=== PATIENT | male | born 1990 | race Caucasian/White ===

== ENCOUNTER 2024-01-02 14:32 | Emergency (ER) | payer MEDICARE, SELFPAY ==
[2024-01-02 14:46] VITALS: BP 130/86; PULSE 86; RESP 16; TEMP 37.2; O2SAT 100
--- NOTE | 2024-01-02 15:34 | ED.GENADULT ---
HPI - General Adult General Chief complaint: Eye Problems Stated complaint: EYE REDNESS Time Seen by Provider: 01/02/24 14:53 Source: patient and RN notes reviewed Mode of arrival: ambulatory Limitations: no limitations History of Present Illness HPI narrative: Patient presents today complaining of right ear pain as well as redness, burning, and dryness to the bilateral eyes. Symptoms began 6 days ago with fever up to 101, cough congestion. These symptoms have since resolved but the ear pain and eye redness have persisted. He also reports some blurred vision, photophobia as well. Patient has an autoimmune disorder, HIDS. Reports the eye symptoms he is experiencing he has had before in his teens when ill and was prescribed Restasis for the dryness as well as an antibiotic eyedrop. Related Data Allergies Allergy/AdvReac Type Severity Reaction Status Date / Time amoxicillin [From Augmentin] Allergy Rash Verified 01/02/24 14:55 clavulanic acid Allergy Rash Verified 01/02/24 14:55 [From Augmentin] Penicillins Allergy Rash Verified 01/02/24 14:55 sulfamethoxazole Allergy Rash Verified 01/02/24 14:55 [From Bactrim] trimethoprim [From Bactrim] Allergy Rash Verified 01/02/24 14:55 Review of Systems Review of Systems: CONSTITUTIONAL: Denies body aches, fever, chills, or sweats. EYES: Bilateral eye redness, blurriness, photophobia, burning ENT: Denies rhinorrhea, congestion, sore throat. + right ear fullness and pain CARDIOVASCULAR: Denies chest pain, palpitations, or edema. RESPIRATORY: Denies cough or dyspnea. GASTROINTESTINAL: Denies abdominal pain, nausea, vomiting, or diarrhea. GENITOURINARY: Denies dysuria or hematuria. SKIN: Denies rash, itching, or wounds. MUSCULOSKELETAL: Denies back pain, joint pain, or myalgia. NEUROLOGIC: Denies headache, numbness, tingling, or weakness. PSYCH: Denies depression or anxiety. 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 Please see nursing chart for further information. There is no relevant family history pertinent to the presenting complaint Exam Narrative: GENERAL: Well-appearing, well-nourished, and in no acute distress. HEAD: Normocephalic, atraumatic. EYES: EOMI. PERRL. Conjunctiva moderately injected. +photophobia. No drainage. Lids and lashes normal bilaterally ENT: Mucous membranes pink and moist. Nares clear. No rhinorrhea. TMs normal bilaterally. Mild right middle ear effusion without evidence of bacterial infection. Throat normal. Uvula midline. NECK: Normal AROM. CHEST: No respiratory distress. Clear to auscultation. HEART: Regular rate and rhythm. No murmur appreciated. EXTREMITIES: Normal range of motion. No edema. SKIN: Warm, dry, no rash. Capillary refill normal. Normal skin turgor. NEURO: No focal deficits. Alert and oriented x3. Gait steady. PSYCH: Normal affect. No signs of depression or anxiety. Course Course Level of Care: Express Care Visit Vital Signs Vital signs: Vital Signs Temperature 98.9 F 01/02/24 14:46 Pulse Rate 86 01/02/24 14:46 Respiratory Rate 16 01/02/24 14:46 Blood Pressure 130/86 01/02/24 14:46 Pulse Oximetry 100 01/02/24 14:46 Temperature 98.9 F 01/02/24 14:46 Pulse Rate 86 01/02/24 14:46 Respiratory Rate 16 01/02/24 14:46 Blood Pressure 130/86 01/02/24 14:46 Pulse Oximetry 100 01/02/24 14:46 Reviewed Medical Decision Making MDM Narrative Medical decision making narrative: Patient's ear does not have a current bacterial infection. Recommend continuing Sudafed and trying Flonase. States he has tried Flonase in the past and does not care for it. Will prescribe some receive a cyst to see if this w
== END 2024-01-02 15:17 | disposition home or self-care (01) ==
PROVIDERS: Emergency Provider Nurse Practitioner
DX: J06.9 Acute upper respiratory infection, unspecified (principal); H10.9 Unspecified conjunctivitis; M04.1 Periodic fever syndromes
CPT/HCPCS: 99203; G0463

== ENCOUNTER 2024-04-07 15:36 | Emergency (ER) | payer MEDICARE, SELFPAY ==
[2024-04-07 17:02] VITALS: BP 137/79; PULSE 65; RESP 16; TEMP 37.2; O2SAT 100
--- NOTE | 2024-04-07 18:06 | ED.GENADULT ---
HPI - General Adult General Chief complaint: Unspecified Stated complaint: Panic Attacks/medication refill Time Seen by Provider: 04/07/24 17:57 Source: patient and RN notes reviewed Mode of arrival: ambulatory Limitations: no limitations History of Present Illness HPI narrative: Patient presents today requesting medication refill. He takes hydroxyzine for panic attacks. States he has been having some more severe panic attacks over the past 2 days and has run out of his hydroxyzine a few months ago. His PCP several months back and he has not found a new 1 to follow-up with for refill. Panic attack symptoms include shortness of breath, dizziness, moodiness, numbness and tingling in his face. Related Data Allergies Allergy/AdvReac Type Severity Reaction Status Date / Time amoxicillin (From Augmentin) Allergy Rash Verified 04/07/24 16:48 clavulanic acid (From Allergy Rash Verified 04/07/24 16:48 Augmentin) Penicillins Allergy Rash Verified 04/07/24 16:48 sulfamethoxazole (From Allergy Rash Verified 04/07/24 16:48 Bactrim) trimethoprim (From Bactrim) Allergy Rash Verified 04/07/24 16:48 Review of Systems Review of Systems: CONSTITUTIONAL: Denies body aches, fever, chills, or sweats. EYES: Denies visual changes, redness, or discharge. ENT: Denies rhinorrhea, congestion, sore throat, or otalgia. CARDIOVASCULAR: Denies chest pain, palpitations, or edema. RESPIRATORY: Denies cough or dyspnea. GASTROINTESTINAL: Denies abdominal pain, nausea, vomiting, or diarrhea. GENITOURINARY: Denies dysuria or hematuria. SKIN: Denies rash, itching, or wounds. MUSCULOSKELETAL: Denies back pain, joint pain, or myalgia. NEUROLOGIC: Denies headache, numbness, tingling, or weakness. 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 Please see nursing chart for further information. There is no relevant family history pertinent to the presenting complaint Exam Narrative: GENERAL: Well-appearing, well-nourished, and in no acute distress. HEAD: Normocephalic, atraumatic. EYES: EOMI. No redness or drainage. Conjunctivae normal. ENT: Mucous membranes pink and moist. NECK: Normal AROM. CHEST: No respiratory distress. Clear to auscultation. HEART: Regular rate and rhythm. No murmur appreciated. EXTREMITIES: Normal range of motion. No edema. SKIN: Warm, dry, no rash. Capillary refill normal. Normal skin turgor. NEURO: No focal deficits. Alert and oriented x3. Gait steady. PSYCH: Anxious Course Course Level of Care: Express Care Visit Vital Signs Vital signs: Vital Signs Temperature 99 F 04/07/24 17:02 Pulse Rate 65 04/07/24 17:02 Respiratory Rate 16 04/07/24 17:02 Blood Pressure 137/79 04/07/24 17:02 Pulse Oximetry 100 04/07/24 17:02 Oxygen Delivery Room Air 04/07/24 17:02 Temperature 99 F 04/07/24 17:02 Pulse Rate 65 04/07/24 17:02 Respiratory Rate 16 04/07/24 17:02 Blood Pressure 137/79 04/07/24 17:02 Pulse Oximetry 100 04/07/24 17:02 Oxygen Delivery Room Air 04/07/24 17:02 Reviewed Medical Decision Making MDM Narrative Medical decision making narrative: Patient will receive a medication refill of his hydroxyzine. He will also be provided with phone number for physician liaison to find a new PCP. Differential Diagnosis Differential Diagnosis: Panic attack, anxiety, medication refill Vital Signs Vital Signs: Vital Signs Temperature 99 F 04/07/24 17:02 Pulse Rate 65 04/07/24 17:02 Respiratory Rate 16 04/07/24 17:02 Blood Pressure 137/79 04/07/24 17:02 Pulse Oximetry 100 04/07/24 17:02 Oxygen Delivery Room Air 04/07/24 17:02 Temperature 99 F 04/07/24 17:02 Pulse Rate 65 04/07/24 17:02 Respiratory Rate 16 04/07/24 17:02 Blood Pressure 137/79 04/07/24 17:02 Pulse Oximetry 100 04/07/24 17:02 Oxygen Delivery Room Air 04/07/24 17:02 Critical Care Time Critical Care Time Critical Care Time: No Discharge Plan Discharge Clinical Impression: Medication refill, Panic attacks Patient Disposition: Home, Self-Care Condition: Stable Instructions: Panic Attack (ED) Additional Instructions: Please take the hydroxyzine as prescribed. Call the [facility] physician liaison number to help you find a new PCP. [phone] Your blood pressure was elevated above 120/80 today at Urgent Care. This puts you above the threshold for follow up. Please schedule a followup visit with your personal physician as soon as possible, for further evaluation and treatment. Even blood pressure exceeding 120/80 may indicate pre-hypertension. Patient Language: Tongan Prescriptions: New hydroxyzine HCl 50 mg tablet 50 mg PO QID PRN (Reason: anxiety) Qty: 30 0RF Follow-up/Referrals: PHYSICIAN,PROVIDER CONTRACTING CONSULTANT [Primary Care Provider] - Time of Disposition: 18:12
== END 2024-04-07 18:15 | disposition home or self-care (01) ==
PROVIDERS: Emergency Provider Nurse Practitioner
DX: F41.0 Panic disorder [episodic paroxysmal anxiety] (principal)
CPT/HCPCS: 99211; G0463